=== PATIENT | female | born 1965 | race Caucasian/White ===

== ENCOUNTER 2017-06-20 11:11 | Day surgery (SDC) | payer OTHER ==
[~2017-06-20] VITALS: Ht 170.2 cm; Wt 95.3 kg
[~2017-06-20 11:11] MED LIST: CONTRAVE ER 8-1 EACH PO; DAILY MULTIPLE1 EAC2 PO
[2017-06-20] MEDS ORDERED: EFFEXOR75 MG PO (11:32)
[2017-06-20 11:34] VITALS: BP 116/58
[2017-06-20 15:30] VITALS: BP 128/57
[2017-06-20 16:13] VITALS: BP 129/62
== END 2017-06-20 16:25 | disposition home or self-care (01) ==
LOC: SDC 11:11
PROC: 0SBC4ZZ Excision of Right Knee Joint, Percutaneous Endoscopic Approach (ICD-10-PCS; principal; 2017-06-20)
DX: S83.241A Other tear of medial meniscus, current injury, right knee, initial encounter (principal); M17.11 Unilateral primary osteoarthritis, right knee; R26.2 Difficulty in walking, not elsewhere classified; F41.9 Anxiety disorder, unspecified
CPT/HCPCS: J0171; J0690; J1100; J1170; J2250; J2405; J3010